=== PATIENT | male | born 1935 | race Caucasian/White ===

== ENCOUNTER 2019-03-17 21:10 | Inpatient (IN) | payer OTHER ==
[~2019-03-17] VITALS: Ht 182.9 cm; Wt 87.5 kg
[2019-03-17 21:15] VITALS: BP_SYST 141
[2019-03-17 22:58] LABS: BASOPHILS # (AUTO) 0.1 K/uL (0.0-0.2); BASOPHILS % (AUTO) 1.4 % (0.0-2.0); EOSINOPHILS # (AUTO) 0.5 K/uL (0.0-0.4); EOSINOPHILS % (AUTO) 9.6 % (0.0-4.0); LYMPHOCYTES # (AUTO) 1.7 K/uL (1.0-5.5); LYMPHOCYTES % (AUTO) 34.5 % (20.5-51.5); MEAN CORPUSCULAR HEMOGLOBIN 22 pg (27-31); MEAN CORPUSCULAR HGB CONC 31 % (32-36); MEAN CORPUSCULAR VOLUME 73 fL (79.0-98.0); MONOCYTES # (AUTO) 0.5 K/uL (0.0-1.0); MONOCYTES % (AUTO) 10.8 % (1.7-9.3); NEUTROPHILS # (AUTO) 2.1 K/uL (1.8-7.7); NEUTROPHILS % (AUTO) 43.7 % (40.0-70.0); PLATELET COUNT (AUTO) 232 K/uL (130-430); RED BLOOD CELL COUNT(AUTO) 2.77 MIL/uL (4.2-6.2); RED CELL DISTRIBUTION WIDTH 18.3 % (9.0-15.0); WHITE BLOOD COUNT (AUTO) 4.9 K/uL (4.8-10.8)
[2019-03-17 23:02] LABS: HEMATOCRIT 20.2 % (36-54); HEMOGLOBIN 6.2 g/dL (14.0-18.0)
[2019-03-17 23:11] LABS: ANION GAP 10 (5-15); CALCIUM 8.3 mg/dL (8.4-11.0); CHLORIDE 107 mmol/L (98-107); CREATININE 1.17 mg/dL (0.55-1.30); GLUCOSE 150 mg/dL (70-99); POTASSIUM 3.8 mmol/L (3.5-5.1); SODIUM SERUM 140 mmol/L (136-145); UREA NITROGEN, BLOOD 19 mg/dL (8-21)
[2019-03-17 23:15] LABS: INR 2.4 (0.80-1.20); PROTHROMBIN TIME 23.5 SECS (9.5-12.5)
[2019-03-17 23:16] LABS: ALANINE AMINOTRANSFERASE 29 U/L (12-78); ALBUMIN 3.3 g/dL (3.4-4.8); ASPARTATE AMINOTRANSFERASE 23 U/L (10-37); TOTAL BILIRUBIN 0.3 mg/dL (0.0-1.0)
[2019-03-17] MEDS ORDERED: LISI-209 PO (23:41)
[2019-03-17] MEDS ORDERED: INSNLG7030 SUBCUT (23:41)
[2019-03-17] MEDS ORDERED: SIMV20TA2 PO (23:41)
[2019-03-17] MEDS ORDERED: WARF5TAB2 PO (23:41)
[2019-03-17] MEDS ORDERED: ASA81 PO (23:41)
[2019-03-17] MEDS ORDERED: METF-510 PO (23:41)
[2019-03-17] MEDS ORDERED: GABA-531 PO (23:41)
[2019-03-18 04:58] VITALS: BP_SYST 131
[2019-03-18] MEDS ORDERED: DEXTROSE 50% JECT 50 ML DISP.SYRIN IVP PRN (10:00)
[2019-03-18 11:05] LABS: BASOPHILS # (AUTO) 0.1 K/uL (0.0-0.2); BASOPHILS % (AUTO) 1.6 % (0.0-2.0); EOSINOPHILS # (AUTO) 0.4 K/uL (0.0-0.4); EOSINOPHILS % (AUTO) 8.6 % (0.0-4.0); HEMATOCRIT 25.4 % (36-54); HEMOGLOBIN 7.9 g/dL (14.0-18.0); LYMPHOCYTES # (AUTO) 1.5 K/uL (1.0-5.5); LYMPHOCYTES % (AUTO) 32.4 % (20.5-51.5); MEAN CORPUSCULAR HEMOGLOBIN 24 pg (27-31); MEAN CORPUSCULAR HGB CONC 31 % (32-36); MEAN CORPUSCULAR VOLUME 75 fL (79.0-98.0); MONOCYTES # (AUTO) 0.4 K/uL (0.0-1.0); MONOCYTES % (AUTO) 9.8 % (1.7-9.3); NEUTROPHILS # (AUTO) 2.1 K/uL (1.8-7.7); NEUTROPHILS % (AUTO) 47.6 % (40.0-70.0); PLATELET COUNT (AUTO) 190 K/uL (130-430); RED BLOOD CELL COUNT(AUTO) 3.37 MIL/uL (4.2-6.2); RED CELL DISTRIBUTION WIDTH 18.9 % (9.0-15.0); WHITE BLOOD COUNT (AUTO) 4.5 K/uL (4.8-10.8)
[2019-03-18 11:13] LABS: INR 2.5 (0.80-1.20); PROTHROMBIN TIME 24.6 SECS (9.5-12.5)
[2019-03-18 12:16] VITALS: BP_SYST 137
[2019-03-18] MEDS: INSULIN REGULAR, HUMAN 100 UNITS/ML, 10 ML VIAL (humuLIN R) SUBCUT PRN ×2 (12:24→23:07)
[2019-03-18 16:24] VITALS: BP_SYST 132
[2019-03-18 18:10] LABS: TOTAL IRON BIND. CAPACITY 290 ug/dL (250-450)
[2019-03-18 19:55] VITALS: BP_SYST 111
[2019-03-18] MEDS: GABAPENTIN 300 MG CAPSULE PO SCH (19:58)
[2019-03-18] MEDS ORDERED: ZOLPIDEM TARTRATE 5 MG TABLET PO ONE (22:00)
[2019-03-18 23:37] VITALS: BP_SYST 126
[2019-03-19 04:07] LABS: FOLATE (FOLIC ACID) >20.0 ng/mL (>3.0)
[2019-03-19 07:45] VITALS: BP_SYST 122
[2019-03-19] MEDS: LISINOPRIL 5 MG TABLET PO SCH ×2 (09:00→09:03)
[2019-03-19] MEDS: ASPIRIN 81 MG TAB.CHEW PO SCH ×2 (09:00→09:04)
[2019-03-19] MEDS: GABAPENTIN 300 MG CAPSULE PO SCH ×2 (09:02→20:22)
[2019-03-19 12:00] VITALS: BP_SYST 133
[2019-03-19] MEDS: INSULIN REGULAR, HUMAN 100 UNITS/ML, 10 ML VIAL (humuLIN R) SUBCUT PRN (12:07)
[2019-03-19 16:14] VITALS: BP_SYST 122
[2019-03-19 19:45] VITALS: BP_SYST 129
[2019-03-19] MEDS ORDERED: SIMVASTATIN 20 MG TABLET PO SCH (21:00)
[2019-03-19] MEDS ORDERED: ZOLPIDEM TARTRATE 5 MG TABLET PO PRN (21:45)
[2019-03-20 00:28] VITALS: BP_SYST 141
[2019-03-20] MEDS: INSULIN REGULAR, HUMAN 100 UNITS/ML, 10 ML VIAL (humuLIN R) SUBCUT PRN ×2 (05:41→11:14)
[2019-03-20 07:22] LABS: BASOPHILS # (AUTO) 0.1 K/uL (0.0-0.2); BASOPHILS % (AUTO) 1.5 % (0.0-2.0); EOSINOPHILS # (AUTO) 0.5 K/uL (0.0-0.4); EOSINOPHILS % (AUTO) 8.3 % (0.0-4.0); HEMATOCRIT 27.1 % (36-54); HEMOGLOBIN 8.5 g/dL (14.0-18.0); LYMPHOCYTES # (AUTO) 1.6 K/uL (1.0-5.5); LYMPHOCYTES % (AUTO) 28.7 % (20.5-51.5); MEAN CORPUSCULAR HEMOGLOBIN 24 pg (27-31); MEAN CORPUSCULAR HGB CONC 31 % (32-36); MEAN CORPUSCULAR VOLUME 75 fL (79.0-98.0); MONOCYTES # (AUTO) 0.5 K/uL (0.0-1.0); MONOCYTES % (AUTO) 9.4 % (1.7-9.3); NEUTROPHILS # (AUTO) 2.9 K/uL (1.8-7.7); NEUTROPHILS % (AUTO) 52.1 % (40.0-70.0); PLATELET COUNT (AUTO) 199 K/uL (130-430); RED BLOOD CELL COUNT(AUTO) 3.62 MIL/uL (4.2-6.2); RED CELL DISTRIBUTION WIDTH 19.4 % (9.0-15.0); WHITE BLOOD COUNT (AUTO) 5.6 K/uL (4.8-10.8)
[2019-03-20 07:45] VITALS: BP_SYST 137
[2019-03-20 07:54] LABS: ANION GAP 6 (5-15); CALCIUM 8.4 mg/dL (8.4-11.0); CHLORIDE 107 mmol/L (98-107); CREATININE 1.15 mg/dL (0.55-1.30); GLUCOSE 185 mg/dL (70-99); SODIUM SERUM 138 mmol/L (136-145); UREA NITROGEN, BLOOD 21 mg/dL (8-21)
[2019-03-20 08:39] LABS: TOTAL IRON BIND. CAPACITY 316 ug/dL (250-450)
[2019-03-20 08:51] LABS: INR 1.6 (0.80-1.20); PROTHROMBIN TIME 16.2 SECS (9.5-12.5)
[2019-03-20] MEDS: GABAPENTIN 300 MG CAPSULE PO SCH (09:00)
[2019-03-20] MEDS: ASPIRIN 81 MG TAB.CHEW PO SCH (09:00)
[2019-03-20] MEDS: LISINOPRIL 5 MG TABLET PO SCH (09:00)
[2019-03-20 11:00] LABS: FERRITIN 8 ng/mL (30-400)
[2019-03-20 12:46] VITALS: BP_SYST 124
[2019-03-20 13:19] VITALS: BP_SYST 124
== END 2019-03-20 14:55 | disposition home or self-care (01) | DRG 812 ==
LOC: SED 21:10 → SMU 03-18 00:43
PROVIDERS: ADMIT Internal Medicine Hospice and Palliative Medicine; ATTEND Internal Medicine Hospice and Palliative Medicine
PROC: 30233N1 Transfusion of Nonautologous Red Blood Cells into Peripheral Vein, Percutaneous Approach (ICD-10-PCS; principal; 2019-03-18)
DX: D50.9 Iron deficiency anemia, unspecified (principal); E11.9 Type 2 diabetes mellitus without complications; E78.5 Hyperlipidemia, unspecified; I10 Essential (primary) hypertension; I48.0 Paroxysmal atrial fibrillation; R79.1 Abnormal coagulation profile; I25.10 Atherosclerotic heart disease of native coronary artery without angina pectoris; Z95.1 Presence of aortocoronary bypass graft; Z87.891 Personal history of nicotine dependence; Z85.038 Personal history of other malignant neoplasm of large intestine; Z79.01 Long term (current) use of anticoagulants; Z79.899 Other long term (current) drug therapy; Z79.82 Long term (current) use of aspirin
CPT/HCPCS: 36415; 71045; 80048; 80053; 82550-TC; 82607; 82728; 82746; 82962; 83540-TC; 83550-TC; 83880; 84484; 85025; 85610-TC; 86886; 86900; 86901; 86920; 93005; 99285; J1815; J7040; P9021

== ENCOUNTER 2019-06-26 16:12 | Inpatient (IN) | payer OTHER ==
[~2019-06-26] VITALS: Ht 182.9 cm; Wt 85.9 kg
[~2019-06-26 16:12] MED LIST: ASA81 PO; GABA-531 PO; INSNLG7030 SUBCUT; LISI-209 PO; METF-510 PO; SIMV20TA2 PO; WARF5TAB2 PO
--- NOTE | 2019-06-26 16:20 | NUR ---
PATIENT TO ER #3, AND PLACED ON MOLD MAKER PLASTER, SAO2 AND ABP
[2019-06-26 16:23] VITALS: BP_SYST 141
--- NOTE | 2019-06-26 16:25 | NUR ---
Patient presented to ER C/O abnormal labs. Patient A&Ox4, afebrile, ambulatory ro ER, skin pale & warm, denies pain, denies N/V/D. Patient states he has felt like he "needs to catch his balance" when he stands up. Patien was sent by Dr. Meek for adnormal labs.
[2019-06-26] MEDS ORDERED: NS 500 ML IV ONE (16:30)
--- NOTE | 2019-06-26 17:00 | NUR ---
Sondra Chelsea at bedside
[2019-06-26 17:06] LABS: BASOPHILS # (AUTO) 0.1 K/uL (0.0-0.2); BASOPHILS % (AUTO) 1.3 % (0.0-2.0); EOSINOPHILS # (AUTO) 0.4 K/uL (0.0-0.4); EOSINOPHILS % (AUTO) 7.3 % (0.0-4.0); HEMATOCRIT 23.3 % (36-54); HEMOGLOBIN 7.1 g/dL (14.0-18.0); LYMPHOCYTES # (AUTO) 2.2 K/uL (1.0-5.5); LYMPHOCYTES % (AUTO) 38.6 % (20.5-51.5); MEAN CORPUSCULAR HEMOGLOBIN 23 pg (27-31); MEAN CORPUSCULAR HGB CONC 30 % (32-36); MEAN CORPUSCULAR VOLUME 76 fL (79.0-98.0); MONOCYTES # (AUTO) 0.5 K/uL (0.0-1.0); MONOCYTES % (AUTO) 8.9 % (1.7-9.3); NEUTROPHILS # (AUTO) 2.5 K/uL (1.8-7.7); NEUTROPHILS % (AUTO) 43.9 % (40.0-70.0); PLATELET COUNT (AUTO) 199 K/uL (130-430); RED BLOOD CELL COUNT(AUTO) 3.09 MIL/uL (4.2-6.2); RED CELL DISTRIBUTION WIDTH 18.9 % (9.0-15.0); WHITE BLOOD COUNT (AUTO) 5.7 K/uL (4.8-10.8)
[2019-06-26 17:12] LABS: ANION GAP 13 (5-15); CALCIUM 8.4 mg/dL (8.4-11.0); CHLORIDE 98 mmol/L (98-107); CREATININE 1.38 mg/dL (0.55-1.30); GLUCOSE 150 mg/dL (70-99); POTASSIUM 4.6 mmol/L (3.5-5.1); SODIUM SERUM 132 mmol/L (136-145); UREA NITROGEN, BLOOD 30 mg/dL (8-21)
--- NOTE | 2019-06-26 17:15 | NUR ---
Medication reconciliation completed with information provided by of patient. Any prior medication reconciliation on file was reviewed and corrected.
[2019-06-26 17:16] LABS: ALANINE AMINOTRANSFERASE 27 U/L (12-78); ALBUMIN 3.5 g/dL (3.4-4.8); ASPARTATE AMINOTRANSFERASE 30 U/L (10-37); PROTHROMBIN TIME 10.3 SECS (9.5-12.5); TOTAL BILIRUBIN 0.3 mg/dL (0.0-1.0)
[2019-06-26] MEDS ORDERED: SIMV40TA2 PO (17:44)
--- NOTE | 2019-06-26 18:07 | NUR ---
Blood transfusion consent form sign and requisition sent to lab.
--- NOTE | 2019-06-26 18:10 | NUR ---
Patient's code status is full code paperwork completed and placed in chart.
--- NOTE | 2019-06-26 18:30 | NUR ---
Patient will be admitted to care of Dr. Arthur. Admitted to MS unit. Will go to room 112. Belongings list completed. Complete and up to date summary report printed. SBAR report to be given at bedside with opportunity for questions.
--- NOTE | 2019-06-26 18:39 | NUR ---
ADMISSION NOTE Received patient from ER via mabel, received report from PREDATORY ANIMAL HUNTER. Patient admitted with diagnosis of ANEMIA. Patient oriented to hospital routine, call light, toileting and safety-patient verbalized understanding.
[2019-06-26 18:52] VITALS: BP_SYST 135
--- NOTE | 2019-06-26 19:30 | NUR ---
OPENING NOTE Bedside report received from admit nurse. Patient received lying in bed, AOx4, no s/s of acute distress, patient denies pain. Breathing even and unlabored. IV site is patent, no signs of infiltration or infection noted. SKin warm and dry to touch. Call light with patient. Bed alarm on. Will continue to monitor.
--- NOTE | 2019-06-26 22:00 | NUR ---
BLOOD TRANSFUSION Blood transfusion initiated at this time. IV site is patent, blood infusing well. Will monitor.
[2019-06-26] MEDS ORDERED: ALBUTEROL SULFATE 0.083% 2.5 MG/3 ML VIAL.NEB INH PRN (22:45)
[2019-06-26] MEDS ORDERED: ONDANSETRON HCL 4 MG/2 ML VIAL IVP PRN (22:45)
[2019-06-26] MEDS ORDERED: ACETAMINOPHEN 325 MG TABLET PO PRN (22:45)
[2019-06-26] MEDS ORDERED: MORPHINE 2 MG/ML INJ. SYRINGE IVP PRN (22:45)
[2019-06-27] VITALS: BP_SYST 124
--- NOTE | 2019-06-27 01:00 | NUR ---
BLOOD FINISHED Blood transfusion finished at this time. Patient tolerated well. Patient denies SOB, no itchiness. All needs met at this time. Will continue to monitor.
[2019-06-27] MEDS: PANTOPRAZOLE SODIUM 40 MG/VIAL (PROTONIX) IVP SCH ×3 (01:11→20:47)
--- NOTE | 2019-06-27 03:00 | NUR ---
ROUNDS Patient in bed asleep at this time. No signs of discomfort noted. Chest rise and fall even bilaterally. Bed alarm on. Will continue to monitor.
--- NOTE | 2019-06-27 05:00 | NUR ---
BLOOD TRANSFUSION As per Dr. Lobo's order, 2nd unit of blood administered at this time, infusing well. Will monitor.
--- NOTE | 2019-06-27 05:15 | NUR ---
Consultation Paged Reason for Consultation: anemia, gi bleed Was consult called: Y Person who was notified: Angela Consulting Physician: Dr. Yusuf (Dr. Driver is occupational health technician) Ordering Physician: Dr. Lobo
[2019-06-27 05:17] VITALS: BP_SYST 124
--- NOTE | 2019-06-27 06:42 | NUR ---
CLOSING NOTES Patient in bed, resting at this time. No s/s of acute distress noted. Breathing even and unlabored. HOB raised. Blood transfusing well, IV site patent, no signs of infiltration or infection noted. Skin warm and dry to touch. All needs met throughout shift. Fall and safety precautions maintained throughout shift. Will continue to monitor until patient care is endorsed to oncoming dayshift nurse.
--- NOTE | 2019-06-27 07:50 | NUR ---
INITIAL NOTES Awake and oriented, resting in bed. Denies any pain or shortness of breath on room air. Receiving PRBC infusion at this time, running well. Afebrile. Updated with plan of care, verbalized understanding. Fall and safety precautions in place. Call light within reach. Encouraged to call anytime for help. Will continue to monitor.
[2019-06-27 08:06] VITALS: BP_SYST 106
[2019-06-27] MEDS: GABAPENTIN 300 MG CAPSULE PO SCH ×2 (08:16→20:46)
[2019-06-27] MEDS: SIMVASTATIN 40 MG TABLET PO SCH (08:16)
[2019-06-27] MEDS: LISINOPRIL 5 MG TABLET PO SCH (08:16)
--- NOTE | 2019-06-27 08:20 | NUR ---
Notes- 2nd unit of blood transfusion done. No reaction noted.
--- NOTE | 2019-06-27 09:30 | NUR ---
MD ROUNDS Seen by Dr. Arthur at bedside.
[2019-06-27 09:40] LABS: BASOPHILS # (AUTO) 0.1 K/uL (0.0-0.2); BASOPHILS % (AUTO) 1.1 % (0.0-2.0); EOSINOPHILS # (AUTO) 0.4 K/uL (0.0-0.4); EOSINOPHILS % (AUTO) 6.7 % (0.0-4.0); HEMATOCRIT 30.2 % (36-54); HEMOGLOBIN 9.3 g/dL (14.0-18.0); LYMPHOCYTES # (AUTO) 2.1 K/uL (1.0-5.5); LYMPHOCYTES % (AUTO) 32.2 % (20.5-51.5); MEAN CORPUSCULAR HEMOGLOBIN 24 pg (27-31); MEAN CORPUSCULAR HGB CONC 31 % (32-36); MEAN CORPUSCULAR VOLUME 79 fL (79.0-98.0); MONOCYTES # (AUTO) 0.6 K/uL (0.0-1.0); NEUTROPHILS # (AUTO) 3.3 K/uL (1.8-7.7); PLATELET COUNT (AUTO) 177 K/uL (130-430); RED BLOOD CELL COUNT(AUTO) 3.83 MIL/uL (4.2-6.2); RED CELL DISTRIBUTION WIDTH 19.6 % (9.0-15.0); WHITE BLOOD COUNT (AUTO) 6.5 K/uL (4.8-10.8)
[2019-06-27 09:53] LABS: ALANINE AMINOTRANSFERASE 25 U/L (12-78); ALBUMIN 3.3 g/dL (3.4-4.8); ANION GAP 12 (5-15); ASPARTATE AMINOTRANSFERASE 19 U/L (10-37); CALCIUM 8.2 mg/dL (8.4-11.0); CHLORIDE 102 mmol/L (98-107); CREATININE 1.48 mg/dL (0.55-1.30); GLUCOSE 214 mg/dL (70-99); POTASSIUM 4.1 mmol/L (3.5-5.1); SODIUM SERUM 136 mmol/L (136-145); TOTAL BILIRUBIN 0.7 mg/dL (0.0-1.0); UREA NITROGEN, BLOOD 25 mg/dL (8-21)
--- NOTE | 2019-06-27 11:03 | NUR ---
ROUNDS Awake in bed. Ambulates to the bathroom. Denies any pain or shortness of breath on room air. Fall and safety checks done. Call light within reach. Encouraged to call anytime for help.
[2019-06-27] MEDS: INSULIN REGULAR, HUMAN 100 UNITS/ML, 10 ML VIAL (humuLIN R) SUBCUT PRN ×2 (11:27→20:50)
[2019-06-27 12:44] VITALS: BP_SYST 125
--- NOTE | 2019-06-27 13:00 | NUR ---
ROUNDS Resting in bed. No sign of distress. Safety checks done. Will continue to monitor.
--- NOTE | 2019-06-27 14:24 | NUR ---
CONSULTATION PAGED/CALLED Reason for Consultation: [] [place] Person Who was Notified: [] ELLIOTT Consulting Physician: [] DR MARC URIAS Air Deodorizer Servicer Specialty: [] GEN SURGEON Ordering Physician: [] DR Wilmar CONKLIN
--- NOTE | 2019-06-27 14:59 | NUR ---
ROUNDS Resting in bed. Denies any pain. No shortness of breath on room air. Safety checks done. Will continue to monitor.
--- NOTE | 2019-06-27 16:00 | NUR ---
MD ROUNDS Seen and examined by Dr. Bell.
[2019-06-27 17:06] VITALS: BP_SYST 131
--- NOTE | 2019-06-27 18:37 | NUR ---
CLOSING NOTES Resting in bed. Ate most of his dinner. Denies any pain. No shortness of breath on room air. Patient wants to go home tonight. Explained that he needs to wait for Dr. Arthur's rounds in the morning. Patient agreed. All needs met throughout shift. Fall and safety precautions in place. Call light within reach. Will endorse to the night nurse.
--- NOTE | 2019-06-27 19:45 | NUR ---
A/A/O X4.DENIES ANY DISCOMFORT @ THIS TIME. DENIES SOB.O2 SAT ON RA 95%.INSTRUCTED TO USE CALL LIGHT NEEDED; WITHIN REACH.
[2019-06-27 20:00] VITALS: BP_SYST 93
--- NOTE | 2019-06-27 20:00 | NUR ---
AFEBRILE. BP 93/47. DENIES ANY DISCOMFORT.
--- NOTE | 2019-06-27 21:00 | NUR ---
FINGER STICK BLD SUGAR 198.REGULAR 2 UNITS SUB Q ADM.SNACKS GIVEN.
--- NOTE | 2019-06-27 23:00 | NUR ---
RESTING COMFORTABLY IN NO ACUTE DISTRESS.
[2019-06-28 00:47] VITALS: BP_SYST 102
--- NOTE | 2019-06-28 02:00 | NUR ---
RESTING COMFORTABLY IN NO ACUTE DISTRESS.
--- NOTE | 2019-06-28 04:00 | NUR ---
ASLEEP IN NO ACUTE DISTRESS.CALL LIGHT WITHIN REACH.
--- NOTE | 2019-06-28 06:19 | NUR ---
FINGER STICK BLD SUGAR 124.
--- NOTE | 2019-06-28 06:47 | NUR ---
ENDORSED RESTING COMFORTABLY IN NO ACUTE DISTRESS.NO S/S OF HYPO/HYPERGLYCEMIA NOTED.SAFETY MAINTAINED. CALL LIGHT WITHIN REACH.
[2019-06-28 07:08] LABS: BASOPHILS # (AUTO) 0.1 K/uL (0.0-0.2); BASOPHILS % (AUTO) 1.3 % (0.0-2.0); EOSINOPHILS # (AUTO) 0.5 K/uL (0.0-0.4); HEMATOCRIT 27.1 % (36-54); HEMOGLOBIN 8.4 g/dL (14.0-18.0); LYMPHOCYTES # (AUTO) 2.1 K/uL (1.0-5.5); LYMPHOCYTES % (AUTO) 31.4 % (20.5-51.5); MEAN CORPUSCULAR HEMOGLOBIN 24 pg (27-31); MEAN CORPUSCULAR HGB CONC 31 % (32-36); MEAN CORPUSCULAR VOLUME 78 fL (79.0-98.0); MONOCYTES # (AUTO) 0.7 K/uL (0.0-1.0); MONOCYTES % (AUTO) 10.1 % (1.7-9.3); NEUTROPHILS # (AUTO) 3.3 K/uL (1.8-7.7); NEUTROPHILS % (AUTO) 50.2 % (40.0-70.0); PLATELET COUNT (AUTO) 169 K/uL (130-430); RED BLOOD CELL COUNT(AUTO) 3.49 MIL/uL (4.2-6.2); RED CELL DISTRIBUTION WIDTH 19.5 % (9.0-15.0); WHITE BLOOD COUNT (AUTO) 6.6 K/uL (4.8-10.8)
[2019-06-28 07:29] LABS: ALANINE AMINOTRANSFERASE 24 U/L (12-78); ALBUMIN 2.9 g/dL (3.4-4.8); ANION GAP 8 (5-15); ASPARTATE AMINOTRANSFERASE 17 U/L (10-37); CALCIUM 8.1 mg/dL (8.4-11.0); CHLORIDE 104 mmol/L (98-107); CREATININE 1.34 mg/dL (0.55-1.30); GLUCOSE 137 mg/dL (70-99); POTASSIUM 3.9 mmol/L (3.5-5.1); SODIUM SERUM 137 mmol/L (136-145); TOTAL BILIRUBIN 0.5 mg/dL (0.0-1.0); UREA NITROGEN, BLOOD 21 mg/dL (8-21)
--- NOTE | 2019-06-28 07:40 | NUR ---
OPENING NOTES: RECEIVED PATIENT FROM SURFACE LOGGING SYSTEMS LOGGER NURSE. PATIENT IS AWAKE AND ALERT x4 LAYING DOWN IN BED. PATIENT DENIES ANY PAIN AT THE MOMENT. PATIENT IS TOLERATING OXYGEN ON ROOM AIR WITH NO SIGNS OF DISTRESS OR SHORTNESS OF BREATH NOTED. IV SITE IS PATENT WITH NO SIGNS OF INFILTRATION NOTED. PATIENT IN STABLE CONDITION. SAFETY, FALL AND ASPIRATION PRECAUTIONS ARE IN PLACE. BED LOCKED IN LOWEST POSITION WITH CALL LIGHT IN REACH. WILL CONTINUE TO MONITOR PATIENT FOR ANY CHANGES.
[2019-06-28] MEDS: PANTOPRAZOLE SODIUM 40 MG/VIAL (PROTONIX) IVP SCH (08:01)
[2019-06-28] MEDS: LISINOPRIL 5 MG TABLET PO SCH (08:01)
[2019-06-28] MEDS: GABAPENTIN 300 MG CAPSULE PO SCH (08:01)
[2019-06-28] MEDS: SIMVASTATIN 40 MG TABLET PO SCH (08:01)
[2019-06-28 08:02] VITALS: BP_SYST 110
--- NOTE | 2019-06-28 10:40 | NUR ---
RN ROUNDS: PATIENT IS AWAKE AND ALERT x4 LAYING DOWN IN BED. PATIENT STATES HE WANTS TO GO HOME. INFORMED PATIENT I WILL NOTIFY THE PHYSICIAN. PATIENT IS TOLERATING OXYGEN ON ROOM AIR WITH NO SIGNS OF DISTRESS OR SHORTNESS OF BREATH NOTED. IV SITE IS PATENT WITH NO SIGNS OF INFILTRATION. PATIENT IN STABLE CONDITION. WILL CONTINUE TO MONITOR PATIENT FOR ANY CHANGES.
[2019-06-28] MEDS: INSULIN REGULAR, HUMAN 100 UNITS/ML, 10 ML VIAL (humuLIN R) SUBCUT PRN (10:51)
--- NOTE | 2019-06-28 11:04 | NUR ---
Nutrition Update Franklin Scale 18 noted. Pt admitted for anemia. Diet: full liquid BMI: 25.7 kg/m2 RD to follow per nutrition care standards.
[2019-06-28 11:52] VITALS: BP_SYST 110
[2019-06-28 12:00] VITALS: BP_SYST 110
--- NOTE | 2019-06-28 12:10 | NUR ---
RN ROUNDS: PATIENT IS AWAKE AND ALERT x4 LAYING DOWN IN BED. PATIENT IS READY TO GO HOME. PATIENT DENIES ANY PAIN AT THE MOMENT. PATIENT IS TOLERATING OXYGEN ON ROOM AIR WITH NO SIGNS OF DISTRESS OR SHORTNESS OF BREATH NOTED. PATIENT IN STABLE CONDITION. WILL CONTINUE TO MONITOR PATIENT FOR ANY CHANGES.
--- NOTE | 2019-06-28 13:15 | NUR ---
D/C Patient: Patient given medication reconciliation form and D/C instructions. Exit Care provided. Patient verbalized understanding. MD discussed with patient the results and treatment provided. Ambulatory with steady gait for discharge to home. Patient in stable condition, ID band removed. IV catheter removed, intact and dressing applied, no active bleeding. Patient educated on pain management. All belongings sent with patient.
== END 2019-06-28 13:15 | disposition home or self-care (01) | DRG 811 ==
LOC: SED 16:12 → SMU 18:04
PROVIDERS: ADMIT Internal Medicine Hospice and Palliative Medicine; ATTEND Internal Medicine Hospice and Palliative Medicine
PROC: 30233N1 Transfusion of Nonautologous Red Blood Cells into Peripheral Vein, Percutaneous Approach (ICD-10-PCS; principal; 2019-06-26)
DX: D50.9 Iron deficiency anemia, unspecified (principal); E43 Unspecified severe protein-calorie malnutrition; K92.2 Gastrointestinal hemorrhage, unspecified; C18.9 Malignant neoplasm of colon, unspecified; I10 Essential (primary) hypertension; E11.65 Type 2 diabetes mellitus with hyperglycemia; E78.00 Pure hypercholesterolemia, unspecified; E83.52 Hypercalcemia; I48.91 Unspecified atrial fibrillation; Z83.3 Family history of diabetes mellitus; Z87.891 Personal history of nicotine dependence; Z95.1 Presence of aortocoronary bypass graft; Z79.899 Other long term (current) drug therapy; Z79.01 Long term (current) use of anticoagulants; Z79.82 Long term (current) use of aspirin; Z79.84 Long term (current) use of oral hypoglycemic drugs; Z79.4 Long term (current) use of insulin; Z68.25 Body mass index [BMI] 25.0-25.9, adult
CPT/HCPCS: 36415; 71045; 80053; 82962; 85025; 85610-TC; 85730-TC; 86886; 86900; 86901; 86920; 87081; 93005; 96360; 99285; C9113; J1815; J7050; P9021